=== PATIENT | female | born 1990 | race Hispanic/Latino ===

== ENCOUNTER 2024-10-21 11:03 | Emergency (ER) | payer OTHER ==
[2024-10-21] MEDS ORDERED: predniSONE 20 MG TAB ONE ×3 (12:14→12:17)
== END 2024-10-21 12:29 | disposition home or self-care (01) ==
LOC: ERS 11:03
DX: O99.891 Other specified diseases and conditions complicating pregnancy (principal); T78.40XA Allergy, unspecified, initial encounter; Z3A.26 26 weeks gestation of pregnancy
CPT/HCPCS: 99282; J7512